=== PATIENT | female | born 1965 | race American Indian/Alaskan Native ===

== ENCOUNTER 2017-04-15 07:01 | Day surgery (SDC) | payer MEDICARE, OTHER ==
[2017-04-05 14:14] VITALS: BMI 29.2
[2017-04-15 07:31] VITALS: O2SAT 98
[2017-04-15] MEDS ORDERED: Propofol 10 mg/ml Inj (20 ML) ONE (07:59)
[2017-04-15] MEDS ORDERED: Sodium Chloride 0.9% 1,000 ML IV SCH (09:00)
[2017-04-15 09:51] VITALS: BP 146/92; PULSE 66; RESP 18; TEMP 98.5
== END 2017-04-15 10:09 | disposition home or self-care (01) ==
LOC: ENDO 07:01
PROVIDERS: ATTEND Internal Medicine Gastroenterology
DX: Z12.11 Encounter for screening for malignant neoplasm of colon (principal); D12.3 Benign neoplasm of transverse colon; K64.0 First degree hemorrhoids